=== PATIENT | male | born 1935 | race Caucasian/White ===

== ENCOUNTER 2019-03-01 06:58 | Inpatient (IN) ==
[2019-02-20 10:49] LABS: URINE SOURCE CLEAN CATCH
--- NOTE | 2019-02-20 10:55 | EKG Report ---
Test Performed on : 02/20/2019 10:17:05 AM Test Reason : PAT Blood Pressure : / mmHG Vent. Rate : 064 BPM Atrial Rate : 064 BPM P-R Int : 160 ms QRS Dur : 082 ms QT Int : 372 ms P-R-T Axes : 055 007 051 degrees QTc Int : 383 ms Sinus rhythm. with occasional premature ventricular complexes. Otherwise normal ECG When compared with ECG of 11-APR-2010 12:15, premature ventricular complexes. are now present Confirmed by Savi ZHONG, Neto Moreira ([id number]) on 02/21/2019 7:16:02 AM
[2019-02-20 11:36] LABS: BILIRUBIN URINE NEGATIVE (NEGATIVE); BLOOD URINE NEGATIVE (NEGATIVE); COLOR YELLOW; GLUCOSE URINE NEGATIVE (NEGATIVE); KETONE URINE NEGATIVE (NEGATIVE); LEUKOCYTES URINE NEGATIVE (NEGATIVE); NITRITE URINE NEGATIVE (NEGATIVE); PROTEIN URINE NEGATIVE (NEGATIVE); SP GRAVITY URINE 1.017; TURBIDITY URINE CLEAR (CLEAR); UROBILINOGEN URINE NORMAL (NORMAL)
[2019-02-20 11:37] LABS: UR EPITHELIAL CELLS <10 /HPF (<10); URINE BACTERIA NEGATIVE /HPF; URINE RBC <10 /HPF (<10); URINE WBC <10 /HPF (<10)
[2019-02-20 11:39] LABS: BASO# 0.03 X1000 (0.0-0.2); BASO% 0.3 % (0.0-0.8); EOS# 0.17 X1000 (0.0-0.7); EOS% 1.7 % (0.0-10.0); HEMATOCRIT 47.7 % (42.0-52.0); HEMOGLOBIN 15.1 g/dL (14.0-18.0); IMM GRAN# 0.04 X1000 (0.0-0.04); IMM GRAN% 0.4 % (0.0-0.5); LYMPH# 2.37 X1000 (1.2-3.4); MCH 30.6 PG (27-31); MCHC 31.7 g/dL (33-37); MCV 96.6 FL (81-99); MONO# 0.78 X1000 (0.11-0.59); MONO% 7.9 % (1.7-9.3); NEUT# 6.47 X1000 (1.4-6.5); NEUT% 65.7 % (42.2-75.2); PLT 240 X1000 (130-400); RBC 4.94 XMIL (4.7-6.1); RDW 14.4 % (11.5-14.5); WBC 9.86 X1000 (4.8-10.8)
[2019-02-20 11:42] LABS: INR 0.98
[2019-02-20 12:23] LABS: CALCIUM 9.7 mg/dL (8.8-10.2); CREATININE 1.6 mg/dL (0.7-1.2); POTASSIUM 3.9 mmol/L (3.5-5.1)
[2019-02-20 13:03] LABS: HEMOGLOBIN A1C 5.6 % (4.8-6.0)
[2019-03-01] MEDS ORDERED: DIPRIVAN 1% ONE (07:32)
[2019-03-01] MEDS ORDERED: ROBINUL ONE ×2 (07:33→09:53)
[2019-03-01] MEDS ORDERED: XYLOCAINE-MPF 2% ONE (07:33)
[2019-03-01] MEDS ORDERED: REGLAN ONE (07:35)
[2019-03-01] MEDS ORDERED: PEPCID ONE (07:35)
[2019-03-01] MEDS ORDERED: COLACE ONE (07:35)
[2019-03-01] MEDS ORDERED: KEFZOL 1 GM/D5W 2 GM/100 ML IVPB ONE (07:36)
[2019-03-01] MEDS ORDERED: CELEBREX ONE (07:36)
[2019-03-01] MEDS ORDERED: LR 1,000 ML ONE (07:36)
[2019-03-01] MEDS ORDERED: LYRICA ONE (07:36)
[2019-03-01] MEDS ORDERED: DEMEROL ONE (08:01)
[2019-03-01] MEDS ORDERED: QUELICIN (DOSE) ONE (08:01)
[2019-03-01] MEDS ORDERED: TORADOL ONE (08:05)
[2019-03-01] MEDS ORDERED: DURAMORPH ONE (08:05)
[2019-03-01] MEDS ORDERED: EXPAREL 1.3% ONE (08:06)
[2019-03-01] MEDS ORDERED: MARCAINE 0.25% PF ONE (08:06)
[2019-03-01] MEDS ORDERED: CYKLOKAPRON 1,000 MG/NS 1,000 MG/100 ML IVPB ONE (08:06)
[2019-03-01] MEDS ORDERED: SODIUM CHLORIDE 0.9% ONE (08:07)
[2019-03-01] MEDS ORDERED: SOLU-CORTEF ONE (09:07)
[2019-03-01] MEDS ORDERED: OFIRMEV 1000 MG/ISOTONIC SOLN 1,000 MG/100 ML BOTTLE ONE (09:10)
[2019-03-01] MEDS ORDERED: DECADRON ONE (09:10)
[2019-03-01] MEDS ORDERED: FENTANYL ONE (09:36)
[2019-03-01] MEDS ORDERED: NEOSTIGMINE ONE (09:54)
[2019-03-01 10:17] LABS: URINE SOURCE CATH
[2019-03-01 10:23] LABS: BILIRUBIN URINE NEGATIVE (NEGATIVE); BLOOD URINE SMALL (NEGATIVE); COLOR YELLOW; GLUCOSE URINE NEGATIVE (NEGATIVE); KETONE URINE NEGATIVE (NEGATIVE); LEUKOCYTES URINE NEGATIVE (NEGATIVE); NITRITE URINE NEGATIVE (NEGATIVE); PROTEIN URINE NEGATIVE (NEGATIVE); SP GRAVITY URINE 1.019; TURBIDITY URINE CLEAR (CLEAR); UROBILINOGEN URINE NORMAL (NORMAL)
[2019-03-01 10:24] LABS: UR EPITHELIAL CELLS >10 /HPF (<10); URINE BACTERIA NEGATIVE /HPF; URINE WBC <10 /HPF (<10)
[2019-03-01] MEDS ORDERED: KETAMINE ONE (10:29)
[2019-03-01] MEDS ORDERED: MORPHINE IV PRN ×3 (11:45)
[2019-03-01] MEDS ORDERED: OXY IR PO PRN ×2 (11:45)
[2019-03-01] MEDS ORDERED: ZOFRAN PO PRN (11:45)
[2019-03-01] MEDS ORDERED: NS 1,000 ML IV SCH (11:45)
[2019-03-01] MEDS ORDERED: NS 1,000 ML ONE (11:50)
[2019-03-01] MEDS ORDERED: OXY IR ONE (11:50)
--- NOTE | 2019-03-01 12:02 | Diag Imaging Result Doc PS360 ---
EXAM: SHOULDER-LEFT HISTORY: post op total shoulder TECHNIQUE: Single view COMPARISON: None. FINDINGS: Orthopedic replacement of the left shoulder. Good positioning in the glenoid and humeral shaft. There are surgical clips in the left axilla. There is bone spurring to the common clavicular joint. Electronically signed by Tomi Briseno 03/01/2019 11:59 AM
--- NOTE | 2019-03-01 12:59 | OPERATIVE NOTE ---
PROCEDURE DATE: 03/01/2019 PREOPERATIVE DIAGNOSIS: Left glenohumeral arthritis with chronic rotator cuff tear. POSTOPERATIVE DIAGNOSIS: Left glenohumeral arthritis with chronic rotator cuff tear. PROCEDURE: Left reverse total shoulder arthroplasty with DePuy Delta Xtend size 12 press-fit stem, a 42 +6 humeral cup, a 42 Eccentric Plus +2 mm lateralized Glenosphere and a standard Metaglene. SURGEON: Dr. Lee SOLDER CREAM MAKER: ROGERS Vázquez who was necessary for proper retraction, and manipulation of the extremity during the case and improved efficiency. SECOND COIL WINDING SUPERVISOR: Shar Nolasco RN. ANESTHESIA: General. IV FLUIDS: 1400 mL lactated Ringer's. ESTIMATED BLOOD LOSS: 300 mL. COMPLICATIONS: None. INDICATIONS: The patient is a pleasant 83-year-old male with chronic history of worsening pain and discomfort of the left shoulder. X-rays revealed significant degenerative arthritis, and MRI did reveal large chronic retracted rotator cuff tear. Given patient's findings and recommendations to proceed with left reversed total shoulder arthroplasty was offered. Risks and benefits of surgery were explained, including the risks of anesthesia, , bleeding, infection, failure to relieve pain, postoperative stiffness, nerve injury, blood clots, and other imponderables. All questions were answered. Patient and family wished to proceed with surgery. DETAILS OF OPERATION: The patient was taken to the operating room and placed supine on operating table. Once adequate anesthesia was obtained, the patient was placed in semi- Zheng beach-chair position. The left shoulder was subsequently prepped and draped in the usual sterile fashion. A standard deltopectoral incision was made with skin knife. Hemostasis was obtained using electrocautery. Deltopectoral was then developed. Retractor was then placed. Approximately 1 cm medial to the insertion in the subscapularis tendon, it was released. A stay suture was placed with #1 Vicryl in the medial aspect of the subscapularis tendon. Head was then dislocated anteriorly. The biceps was released in this area of the posterior superior aspect of the proximal humerus was performed as well. A starting reamer was then passed in the intramedullary canal. This followed by sequential reaming up to a size 12. Intramedullary guide with a distal femoral cutting block was pinned in position approximately 15 degrees of retroversion. The humeral head was then resected. After consent having been performed, protective disk was then placed. Attention then turned to the glenoid. Circumferential dissection was then performed with a deep knife. A guide was then placed in position. Guide pin was placed. Reaming was then conducted. Central hole was then dilated. The wound was copiously irrigated with antibiotic pulsatile lavage. A standard Metaglene was then impacted into position. Two locking screws were placed, and 2 nonlocking screws appeared to have good purchase. After this has been performed, a 42 eccentric glenosphere +2 lateralized eccentric glenosphere was then placed with Eccentricity placed inferiorly. Attention was then turned to the proximal humerus where intramedullary guide was placed in position. Proximal humerus was reamed. The wound was copiously irrigated with antibiotic pulsatile lavage. A size 12 Delta Xtend press-fit stem was then placed. It had good fit. After this had been performed, a trial cup size and 42 was trialed. Trial cups were placed, and a 42 +6 humeral cup had excellent range of motion. Trial cup was removed. Copious irrigation was then performed with antibiotic pulsatile lavage. A 42+ 6 humeral cup was then placed. The shoulder was reduced, and carried through range of motion. Good range of motion and good soft tissue balancing. Exparel was placed in deep soft tissue. The wound was copiously irrigated once again. A #2 FiberWire was used to repair the subscapular tendon. The patient had some fraying in the anterior aspect of the deltoid. This was on the most anterior limb, and this was loosely reapproximated. The cephalic vein was tied, and had a small hole proximally given this finding, we did proceed with tying the cephalic vein off with #1 Vicryl. Irrigation was then performed once again. The remaining Exparel placed in the deep soft tissue, as well as subcutaneous tissue. Final irrigation was then performed. A 2-0 Vicryl was then used to repair the subcutaneous tissue and running 2-0 Prolene. Benzoin and Steri-Strips were applied. Adaptic, sterile 4 x 4, ABD pad, and tape applied to the left shoulder followed by shoulder immobilizer. All counts were correct. Patient tolerated the procedure well, and was transferred to the recovery room in stable condition. cc: Calixto Lee MD [facility]ITAL[facility]
[2019-03-01] MEDS: TYLENOL PO SCH ×2 (14:25→17:13)
[2019-03-01] MEDS ORDERED: CYKLOKAPRON 1,000 MG in NS 100 ML IV ONE (15:00)
[2019-03-01] MEDS: KEFZOL 2 GM/D5W 2 GM/50 ML IVPB IV SCH (18:54)
[2019-03-01] MEDS: PERIDEX MT SCH (21:12)
[2019-03-01] MEDS: COLACE PO SCH (21:12)
[2019-03-02] MEDS: KEFZOL 2 GM/D5W 2 GM/50 ML IVPB IV SCH (02:49)
[2019-03-02] MEDS: TYLENOL PO SCH ×2 (02:49→08:28)
[2019-03-02] MEDS ORDERED: TUMS PO PRN (04:54)
[2019-03-02 07:13] LABS: HEMATOCRIT 34.8 % (42.0-52.0); HEMOGLOBIN 11.3 g/dL (14.0-18.0)
[2019-03-02 07:17] LABS: CREATININE 1.6 mg/dL (0.7-1.2); POTASSIUM 4.5 mmol/L (3.5-5.1)
[2019-03-02 07:33] VITALS: BP 127/52
--- NOTE | 2019-03-02 07:39 | ORTHOPAEDICS PROGRESS NOTE ---
DATE: 03/02/2019 SUBJECTIVE: Mr. Thompson is status post day 1 left reverse total shoulder arthroplasty. He had no complaints through the night and is resting comfortably in bed this morning. OBJECTIVE: Mr. Thompson is resting comfortably in bed with no complaints at this time. His incision is clean and dry. His bandage is intact. He has no significant bruising or swelling this morning. His labs are pending at this time. ASSESSMENT: Status post day 1 left reverse total shoulder arthroplasty. PLAN: Mr. Thompson plans on going to rehab access for his physical therapy upon discharge. He will be discharged home today. He will follow up in office on 03/13/19. Dictated by ROGERS Vázquez for Calixto Lee MD cc: Calixto Lee MD MTDD
[2019-03-02] MEDS: COLACE PO SCH (08:28)
[2019-03-02] MEDS: PERIDEX MT SCH (08:28)
[2019-03-02] MEDS ORDERED: FLU VACCINE IM ONE (08:34)
[2019-03-02] MEDS ORDERED: PRINIVIL PO SCH (09:00)
[2019-03-02] MEDS ORDERED: HYDROCHLOROTHIAZIDE PO SCH (09:00)
[2019-03-02] MEDS ORDERED: PNEUMOVAX 23 IM ONE (09:00)
[2019-03-02] MEDS ORDERED: PREDNISONE PO SCH (09:00)
[2019-03-02] MEDS ORDERED: ZYLOPRIM PO SCH (09:00)
== END 2019-03-02 10:33 | disposition home or self-care (01) | DRG 483 ==
LOC: SURHOLD 06:58 → 4N 09:02
PROVIDERS: ADMIT Orthopaedic Surgery Adult Reconstructive Orthopaedic Surgery; ATTEND Orthopaedic Surgery Adult Reconstructive Orthopaedic Surgery